=== PATIENT | male | born 1950 | race Caucasian/White ===

== ENCOUNTER 2022-12-19 06:34 | Day surgery (SDC) | payer OTHER, MEDICARE ==
[2022-12-04 10:27] VITALS: BMI 37.1
[2022-12-19] MEDS ORDERED: BUPIVACAINE HCL/PF 0.25% (2.5MG/ML) 10 ML VIAL ONE (07:06)
[2022-12-19] MEDS ORDERED: BUPIVACAINE HCL/PF 0.5% (5MG/ML) 10 ML VIAL ONE (07:07)
[2022-12-19] MEDS ORDERED: LIDOCAINE HCL 2% (20ML MULTI-DOSE VIAL) ONE (07:07)
[2022-12-19 07:13] VITALS: RESP 18
[2022-12-19] MEDS ORDERED: PROPOFOL 40 ML ONE (07:24)
[2022-12-19] MEDS ORDERED: MIDAZOLAM HCL 2 MG/2 ML SINGLE DOSE VIAL ONE (07:24)
[2022-12-19] MEDS ORDERED: SUCCINYLCHOLINE CHLORIDE 200 MG/10 ML SYRINGE ONE (07:24)
[2022-12-19] MEDS ORDERED: PROPOFOL 20 ML ONE ×2 (07:56→10:09)
[2022-12-19] MEDS ORDERED: KETAMINE HCL 200 MG/20 ML VIAL ONE (07:57)
[2022-12-19 09:23] VITALS: BP 152/95; PULSE 89; TEMP 96.6
== END 2022-12-19 09:28 | disposition home or self-care (01) ==
LOC: FASU 06:34
PROVIDERS: ATTEND Orthopaedic Surgery Hand Surgery
PROC: 0LN70ZZ Release Right Hand Tendon, Open Approach (ICD-10-PCS; 2022-12-19)
PROC: 0LN70ZZ Release Right Hand Tendon, Open Approach (ICD-10-PCS; 2022-12-19)
PROC: 0LN70ZZ Release Right Hand Tendon, Open Approach (ICD-10-PCS; principal; 2022-12-19 08:21)
DX: M65.311 Trigger thumb, right thumb (principal); M65.321 Trigger finger, right index finger; M65.331 Trigger finger, right middle finger
CPT/HCPCS: 82962